=== PATIENT | female | born 1960 | race Caucasian/White ===

== ENCOUNTER 2021-04-08 08:36 | Day surgery (SDC) | payer BC ==
[2021-04-08] VITALS (13 sets, daily range): BP systolic 95–116; BP diastolic 58–76
[~2021-04-08] VITALS: Ht 170.2 cm; Wt 61.6 kg
[2021-04-08] MEDS ORDERED: MULT-1085 PO (09:25)
[2021-04-08 09:29] LABS: EOSINOPHILS # (AUTO) 0.2 X10'3 (0-0.9); EOSINOPHILS % (AUTO) 3.9 % (0-6); HEMATOCRIT 42.6 % (35.0-45.0); HEMOGLOBIN 14.9 g/dl (12.0-16.0); LYMPHOCYTES # (AUTO) 1.6 X10'3 (1.1-4.8); MEAN CORPUSCULAR HEMOGLOBIN 31.2 PG (27.0-31.0); MEAN CORPUSCULAR HGB CONC 34.9 g/dL (33.0-36.5); MEAN CORPUSCULAR VOLUME 89.4 FL (78-98); MEAN PLATELET VOLUME 7.8 FL (7.4-10.4); MONOCYTES # (AUTO) 0.4 X10'3 (0-0.9); MONOCYTES % (AUTO) 8.2 % (2-12); NEUTROPHILS # (AUTO) 2.7 X10'3 (1.8-7.7); NEUTROPHILS % (AUTO) 53.9 % (42-75); PLATELET COUNT 244 X10'3 (140-440); RED BLOOD COUNT 4.77 X10'6 (4.20-5.60); RED CELL DISTRIBUTION WIDTH 12.8 % (11.5-14.5)
[2021-04-08] MEDS ORDERED: black cohosh PO (10:00)
[2021-04-08] MEDS ORDERED: OMEG1CAP21 PO (10:00)
[2021-04-08] MEDS ORDERED: LACT1CAP65 PO (10:00)
[2021-04-08] MEDS ORDERED: VITA-268 PO (10:00)
[2021-04-08] MEDS ORDERED: CALC-815 PO (10:00)
[2021-04-08] MEDS ORDERED: midazolam 1 mg/ML 2ml injection ONE (10:04)
[2021-04-08] MEDS ORDERED: fentaNYL/PF 50MCG/1 ML 2ML syringe ONE (10:04)
== END 2021-04-08 13:25 | disposition home or self-care (01) ==
LOC: SSTAY O 08:36
PROVIDERS: ATTEND Preventive Medicine Aerospace Medicine
DX: N28.1 Cyst of kidney, acquired (principal); M54.30 Sciatica, unspecified side; Z79.899 Other long term (current) drug therapy
CPT/HCPCS: 36415; 50390; 77012; 85025; J2250; J3010